=== PATIENT | male | born 2000 | race Caucasian/White ===

== ENCOUNTER 2020-02-18 11:38 | Emergency (ER) | payer OTHER, SELFPAY ==
[2020-02-18 11:40] VITALS: BP 129/79; PULSE 100; RESP 15; TEMP 36.7; O2SAT 100
--- NOTE | 2020-02-18 12:16 | ED.GENADULT ---
HPI - General Adult General Chief complaint: Extremity Injury, Upper <Brandt Carmona PA-C - Last Filed: 02/18/20 12:21> Stated complaint: right shoulder pain <Brandt Carmona PA-C - Last Filed: 02/18/20 12:21> Time Seen by Provider: 02/18/20 11:51 <Brandt Carmona PA-C - Last Filed: 02/18/20 12:21> History of Present Illness HPI narrative: Patient is a 19-year-old male who presents to emergency department for evaluation of right shoulder pain that is been present for several months believes that he may have injured with prior activities notes that sometimes the shoulder pops and is worse with activity and movement notes that 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 Patient denies injury or trauma has not been seen for this complaint presents per private vehicle denies any URI symptoms <Brandt Carmona PA-C - Last Filed: 02/18/20 12:21> Related Data Allergies/adverse reactions: Allergies Allergy/AdvReac Type Severity Reaction Status Date / Time No Known Allergies Allergy Verified 02/18/20 12:20 <Brandt Carmona PA-C - Last Filed: 02/18/20 12:21> Review of Systems Review of Systems: All systems reviewed & are unremarkable except as noted in HPI and below <Brandt Carmona PA-C - Last Filed: 02/18/20 12:21> PMFSH Social History Social History: Social History Gender identity (if verbalized by the patient): Male <Brandt Carmona PA-C - Last Filed: 02/18/20 12:21> Exam Narrative: Exam Narrative: GENERAL: Well-appearing, well-nourished, and in no acute distress. HEAD: Normocephalic, atraumatic. EYES: PERRLA and EOMI. ENT: Nares clear, no rhinorrhea or epistaxis. Mucous membranes moist. CHEST: Clear to auscultation. No respiratory distress. No wheezes rales or rhonchi HEART: Regular rate and rhythm. No murmur heard. Normal peripheral pulses. EXTREMITIES: Normal range of motion. No edema. No deformity or tenderness of the right shoulder joint SKIN: Warm, dry, no rash. NEURO: No focal deficits. Alert and oriented x3. Neurovascularly intact PSYCH: Normal mood and affect. <Brandt Carmona PA-C - Last Filed: 02/18/20 12:21> Course Course Emergency Course: Patient in the room in no distress aware of case findings treatment plan and diagnosis <Brandt Carmona PA-C - Last Filed: 02/18/20 12:21> Vital Signs Vital signs: Vital Signs Temperature 36.7 C 02/18/20 11:40 Pulse Rate 100 02/18/20 11:40 Respiratory Rate 15 02/18/20 11:40 Blood Pressure 129/79 02/18/20 11:40 Pulse Oximetry 100 02/18/20 11:40 Temperature 36.7 C 02/18/20 11:40 Pulse Rate 100 02/18/20 11:40 Respiratory Rate 15 02/18/20 11:40 Blood Pressure 129/79 02/18/20 11:40 Pulse Oximetry 100 02/18/20 11:40 <Brandt Carmona PA-C - Last Filed: 02/18/20 12:21> Vital Signs Temperature 36.7 C 02/18/20 11:40 Pulse Rate 100 02/18/20 11:40 Respiratory Rate 15 02/18/20 11:40 Blood Pressure 129/79 02/18/20 11:40 Pulse Oximetry 100 02/18/20 11:40 Temperature 36.7 C 02/18/20 11:40 Pulse Rate 100 02/18/20 11:40 Respiratory Rate 15 02/18/20 11:40 Blood Pressure 129/79 02/18/20 11:40 Pulse Oximetry 100 02/18/20 11:40 <Kathrin Lei MD - Last Filed: 02/18/20 13:58> Medical Decision Making MDM Narrative Medical decision making narrative: Patients injury or pain is consistent with musculoskeletal etiology. No signs of neurological or vascular compromise on exam. Compartments and tisues are soft without signs of compartment syndrome. Pain is felt appropriate for further evaluation on an outpatient basis. <Brandt Carmona PA-C - Last Filed: 02/18/20 12:21> Vital Signs Vital Signs: Vital Signs Temperature 36.7 C 02/18/20 11:40 Pulse Rate 100 02/18/20 11:40 Respiratory Rate 15 02/18/20 11:40 Blood Pr
== END 2020-02-18 12:25 | disposition home or self-care (01) ==
PROVIDERS: Emergency Provider Emergency Medicine
DX: M25.511 Pain in right shoulder (principal)
CPT/HCPCS: 99283